=== PATIENT | male | born 2005 | race African-American/Black ===

== ENCOUNTER 2024-06-09 14:56 | Emergency (ER) | payer SELFPAY ==
[2024-06-10] MEDS ORDERED: NAPR-837 PO (10:48)
[2024-06-10] MEDS ORDERED: CEPH500C PO (10:48)
== END 2024-06-09 14:57 | disposition left against medical advice (07) ==
LOC: M ED 14:56
DX: Z53.21 Procedure and treatment not carried out due to patient leaving prior to being seen by health care provider (principal)

== ENCOUNTER 2024-06-10 08:03 | Emergency (ER) | payer OTHER, SELFPAY ==
[~2024-06-10] VITALS: Ht 180.3 cm; Wt 106.7 kg
[2024-06-10] MEDS ORDERED: NAPR-837 PO (10:48)
[2024-06-10] MEDS ORDERED: CEPH500C PO (10:48)
[2024-06-10 10:57] VITALS: BP 128/73; TEMP 97.1; O2SAT 99
[2024-06-10 12:40] LABS: GC DNA AMPLIFICATION NEGATIVE (NEGATIVE)
== END 2024-06-10 10:58 | disposition home or self-care (01) ==
LOC: M ED 08:03
DX: N44.2 Benign cyst of testis (principal); N50.811 Right testicular pain; Z79.2 Long term (current) use of antibiotics; Z79.899 Other long term (current) drug therapy

== ENCOUNTER 2025-11-15 11:37 | Emergency (ER) | payer OTHER ==
[~2025-11-15] VITALS: Ht 177.8 cm; Wt 118.8 kg
[~2025-11-15 11:37] MED LIST: CEPH500C PO; NAPR-837 PO
[2025-11-15 18:16] VITALS: BP 129/76; TEMP 97.6; O2SAT 100
== END 2025-11-15 18:19 | disposition home or self-care (01) ==
LOC: M ED 11:37
DX: R19.7 Diarrhea, unspecified (principal)